=== PATIENT | female | born 1975 | race Asian ===

== ENCOUNTER → 2021-06-24 13:22 | Outpatient (CLI) | payer OTHER, SELFPAY ==
--- NOTE | ~2021-06-24 | US_ITS ---
EXAMINATION: US pelvic complete DATE: 06/24/2021 13:45 INDICATION: Abnormal uterine bleeding Comparison:Ultrasound dated 07/19/2005 TECHNIQUE: Multiple transabdominal and endovaginal sonographic images of the pelvis performed. FINDINGS: The uterus measures 10.2 x 5.3 x 2 6.2 cm. There are uterine fibroids located at the fundus measuring up to 2.6 cm and pedunculated anteriorly measuring 1.7 cm. The endometrial complex measure s 1 cm. The right ovary measures 2.8 x 1.3 x 2.9 cm and the left ovary measures 2.7 x 1.7 x 2.2 cm. There ar e small follicles in each ovary. Normal doppler signal in both ovaries. There is no free fluid in the pelvis. There are no abnormal masses seen on either side. IMPRESSION: 1. Enlarged fibroid uterus. Reviewed, dictated and finalized at location B. IMPRESSION: 1. Enlarged fibroid uterus.
== END ==
PROVIDERS: PCP Family Medicine Sports Medicine; Visit Provider Obstetrics & Gynecology
DX: N93.8 Other specified abnormal uterine and vaginal bleeding (principal); D25.9 Leiomyoma of uterus, unspecified
CPT/HCPCS: 76856

== ENCOUNTER 2024-11-11 14:47 | Outpatient (CLI) | payer OTHER, SELFPAY ==
--- NOTE | ~2024-11-11 | US_ITS ---
EXAM: PELVIC ULTRASOUND HISTORY: anemia, heavy periods 3 para 3. COMPARISON: 06/24/2021. FINDINGS: UTERUS: 10.0 x 5.7 x 6.6 cm. The uterus is anteverted and anteflexed. The endometrial complex measures 10 mm. Free fluid within the endometrial canal. A transmural fibroid is identified within the fundus of the uterus, measuring 17 x 11 x 16 mm, largel y unchanged from 2020 examination. Dilated serpiginous vasculature is identified medially and laterally surrounding the uterus (left gre ater than right) measuring up to 5.3 cm without Valsalva for which pelvic congestion syndrome is susp ected. RIGHT OVARY: The right ovary is unremarkable in echogenicity and size measuring 2.2 x 1.9 x 2.3 cm. Dopplerable flow is identified. LEFT OVARY: The left ovary is unremarkable in echogenicity and size measuring 1.8 x 1.9 x 2.0cm Dopplerable flow is identified. No free fluid is identified within the pelvis. IMPRESSION: Single fibroid within the uterus, largely unchanged from 2020. Dilated serpiginous vasculature surrounding the uterus, left greater than right, for which pelvic con gestion syndrome is suspected and for which clinical correlation is needed Reviewed, dictated and finalized at location A. IMPRESSION: Single fibroid within the uterus, largely unchanged from 2020. Dilated serpiginous vasculature surrounding the uterus, left greater than right , for which pelvic congestion syndrome is suspected and for which clinical natalie elation is needed
== END 2024-11-11 14:48 | disposition home or self-care (01) ==
PROVIDERS: PCP Family Medicine Sports Medicine; Visit Provider Nurse Practitioner
DX: D25.9 Leiomyoma of uterus, unspecified (principal); I86.2 Pelvic varices; D64.9 Anemia, unspecified; N92.0 Excessive and frequent menstruation with regular cycle
CPT/HCPCS: 76830